=== PATIENT | male | born 1960 ===

== ENCOUNTER 2017-11-22 05:10 | Day surgery (SDC) | payer OTHER ==
[~2017-11-22 05:10] MED LIST: ASPIR-LOW81 MG PO; CARDIZEM120 MG PO; CRESTOR20 MG PO; LOZARTAN PO; REQUIP2 MG PO
== END 2017-11-22 12:05 | disposition home or self-care (01) ==
LOC: CIR.AMB 05:10
DX: M1A.03 Idiopathic chronic gout, wrist (principal); M66.242 Spontaneous rupture of extensor tendons, left hand